=== PATIENT | male | born 1940 | race American Indian/Alaskan Native ===

== ENCOUNTER 2018-05-17 12:28 | Outpatient (CLI) | payer MEDICARE, OTHER ==
--- NOTE | 2018-05-17 22:37 | XRay Report ---
PROCEDURE: XR SPINE LUMBOSACRAL 4+V TECHNIQUE: 5 views obtained of the lumbar spine HISTORY: M54.4 LOW BACK PAIN COMPARISONS: No priors. FINDINGS: mild degenerative changes of the lower lumbar spine with narrowing of intervertebral disc spaces most prominently at L4-L5 . No evidence of compression deformity. No spondylolysis or spondylolisthesis. IMPRESSION: Mild degenerative changes of the lower lumbar spine with narrowing of intervertebral disc spaces most prominently at L4-L5. . This document is electronically signed by Berhane Osman MD., May 17 2018 10:35:52 PM ET
== END 2018-05-17 12:29 | disposition home or self-care (01) ==
LOC: XRAY 12:28
PROVIDERS: ATTEND Orthopaedic Surgery
DX: M47.816 Spondylosis without myelopathy or radiculopathy, lumbar region (principal); I10 Essential (primary) hypertension; E78.00 Pure hypercholesterolemia, unspecified; E66.9 Obesity, unspecified; Z87.891 Personal history of nicotine dependence
CPT/HCPCS: 72110

== ENCOUNTER 2018-06-03 07:03 | Outpatient (CLI) | payer MEDICARE, OTHER ==
--- NOTE | 2018-06-03 09:21 | Cat Scan Report ---
CT LUMBAR SPINE WITHOUT CONTRAST INDICATION: Low back pain. COMPARISON: None similar. FINDINGS: Noncontrast axial, sagittal and coronal CT reconstructions through the lumbar spine demonstrate normal vertebral body stature and alignment. Lumbar degenerative spurring, greatest at L2-L3 with endplate irregularities noted. Conus medullaris appears to terminate behind L1. Nonaneurysmal abdominal aorta with few atherosclerotic calcifications. Multiple large right renal cysts as partly exophytic off the upper pole measuring 7.3 cm partially imaged as on axial image 19, series 2 (this measured approximately 5 cm as on axial series 7, image 43, 06/05/2010 CT procedure images) and another more inferomedially incompletely imaged and partially effacing the IVC as on axial image 59, amongst others. Left upper to mid renal cortical thinning/scarring posteriorly may also be noted on axial image 27. Bilateral SI joint degenerative changes. Possible osteopenia. On the obtained axial images: T10-T11 through L1-L2 are unremarkable. AP thecal sac caliber at L1-L2 is 1.2 cm. L2-L3 demonstrates mild to moderate disc narrowing with slight disc bulge/osteophyte complex and minimal vacuum disc phenomenon. AP thecal sac caliber is 0.8 cm, axial image 55, series 2. L3-L4 demonstrates mild bilateral neural foraminal spurring/undercutting. L4-L5 suggests slight vacuum disc phenomenon. Mild bilateral facet degenerative changes. L5-S1 also suggests vacuum disc phenomenon. Superior and inferior endplate irregularities/Schmorl's nodes. CONCLUSION: No acute CT abnormality with multilevel lumbar spondylosis noted, greatest at L2-L3 with few other findings as large right renal cysts, as described. Please correlate. Thank you for the opportunity to participate in this patient's care.
== END 2018-06-03 07:04 | disposition home or self-care (01) ==
LOC: CT 07:03
PROVIDERS: ATTEND Orthopaedic Surgery
DX: M47.816 Spondylosis without myelopathy or radiculopathy, lumbar region (principal); N28.1 Cyst of kidney, acquired; I10 Essential (primary) hypertension; E78.00 Pure hypercholesterolemia, unspecified; E66.9 Obesity, unspecified
CPT/HCPCS: 72131

== ENCOUNTER 2018-07-20 08:15 | Outpatient (CLI) | payer MEDICARE, OTHER ==
[2018-07-20 09:30] LABS: Hematocrit 42.3 % (35.5-45.6); Hemoglobin 14.6 gm/dl (11.8-15.2); Mean Corpuscular HGB Conc 35 % (32-34); Mean Corpuscular Volume 91 fl (84-94); Platelet Count 187 K/mm3 (140-440); Red Blood Count 4.65 M/mm3 (3.65-5.03); Red Cell Distribution Width 14.3 % (13.2-15.2)
[2018-07-20 09:36] LABS: Alanine Aminotransferase 33 units/L (7-56); Albumin 4.3 g/dL (3.9-5); BUN/Creatinine Ratio 20; Blood Urea Nitrogen 20 mg/dL (9-20); Calcium 9.1 mg/dL (8.4-10.2); Hemolysis Index 1
[2018-07-20 10:12] LABS: Erythrocyte Sedimentation Rate 6 mm/Hr (0-20)
[2018-07-23 05:59] LABS: Albumin 4.1 g/dL (3.8-4.8); Gamma Globulin 1.2 g/dL (0.8-1.7)
[2018-07-23 12:30] LABS: Vitamin D, 25-OH, D2 <4 ng/mL
[2018-07-24 13:42] LABS: ANA Screen, IFA Positive (Negative)
== END 2018-07-20 08:16 | disposition home or self-care (01) ==
LOC: LAB 08:15
PROVIDERS: ATTEND Specialist
DX: G57.41 Lesion of medial popliteal nerve, right lower limb (principal); I10 Essential (primary) hypertension; E78.00 Pure hypercholesterolemia, unspecified; E66.9 Obesity, unspecified; Z87.891 Personal history of nicotine dependence; R79.89 Other specified abnormal findings of blood chemistry
CPT/HCPCS: 36415; 80053; 82306; 82550; 82607; 82747; 83036; 83921; 84165; 84443; 85027; 85652; 86038; 86225; 86334; 86592